=== PATIENT | female | born 1995 | race Caucasian/White ===

== ENCOUNTER 2023-01-12 07:32 | Inpatient (IN) | payer OTHER ==
[~2023-01-12] VITALS: Ht 154.9 cm; Wt 97.5 kg
[2023-01-12] MEDS ORDERED: LR 1,000 ML IV ONE (11:45)
[2023-01-12] MEDS ORDERED: NALBUPHINE HCL 10 MG/ML AMP IVP PRN (11:45)
[2023-01-12] MEDS ORDERED: LR 1,000 ML IV SCH (11:45)
[2023-01-12 12:10] LABS: BASOPHILS % (AUTO) 0.3 % (0.0-2.0); EOSINOPHILS % (AUTO) 0.4 % (0.0-4.0); HEMATOCRIT 30.7 % (36-48); HEMOGLOBIN 9.7 g/dL (12.0-16.0); LYMPHOCYTES # (AUTO) 1.9 K/uL (1.0-5.5); LYMPHOCYTES % (AUTO) 15.6 % (20.5-51.5); MEAN CORPUSCULAR HEMOGLOBIN 23 pg (27-31); MEAN CORPUSCULAR HGB CONC 32 % (32-36); MEAN CORPUSCULAR VOLUME 73 fL (79.0-98.0); MONOCYTES # (AUTO) 0.7 K/uL (0.0-1.0); MONOCYTES % (AUTO) 5.6 % (1.7-9.3); NEUTROPHILS # (AUTO) 9.6 K/uL (1.8-7.7); NEUTROPHILS % (AUTO) 78.1 % (40.0-70.0); PLATELET COUNT (AUTO) 175 K/uL (130-430); RED BLOOD CELL COUNT(AUTO) 4.23 MIL/uL (4.2-6.2); RED CELL DISTRIBUTION WIDTH 19.4 % (9.0-15.0); WHITE BLOOD COUNT (AUTO) 12.3 K/uL (4.8-10.8)
[2023-01-12] MEDS ORDERED: OXYTOCIN/0.9 % SODIUM CHLORIDE 1,000 ML IV ONE ×2 (12:51→18:00)
[2023-01-12] MEDS ORDERED: OXYTOCIN/0.9 % SODIUM CHLORIDE 1,000 ML IV SCH ×2 (13:00→18:00)
[2023-01-12] MEDS ORDERED: HEMABATE 250MCG/ML VIAL AMP IM ONE (13:36)
[2023-01-12] MEDS ORDERED: METHYLERGONOVINE MALEATE 0.2 MG/ML AMP ONE ×2 (13:36→14:58)
[2023-01-12] MEDS ORDERED: ANUSOL 1 EA SUPP.RECT (PREPARATION H) RC PRN (18:00)
[2023-01-12] MEDS ORDERED: DIPHTH,PERTUSS(ACELL),TET VAC 0.5 ML VIAL (Tdap) I.M. PRN (18:00)
[2023-01-12] MEDS ORDERED: DERMOPLAST SPRAY TP PRN (18:00)
[2023-01-12] MEDS ORDERED: MEASLES,MUMPS&RUBELLA VACC/PF 12500 UNIT/0.5 ML VIAL SUBQ PRN (18:00)
[2023-01-12] MEDS ORDERED: METHYLERGONOVINE MALEATE 0.2 MG TABLET PO PRN (18:00)
[2023-01-12] MEDS ORDERED: WITCH HAZEL LEAF 1 MED.PAD MED.PAD TP PRN (18:00)
[2023-01-12] MEDS ORDERED: HYDROCORTISONE 0.5% CREAM 28.4 GM CREAM.GM. TP PRN (18:00)
[2023-01-12] MEDS ORDERED: RHO(D) IMMUNE GLOBULIN/MALTOSE 1500 UNITS/1.3 ML (WINHRO) IM PRN (18:00)
[2023-01-12] MEDS ORDERED: LANOLIN 7 GM OINT. TP PRN (18:00)
[2023-01-12] MEDS: IBUPROFEN 600 MG TABLET PO SCH (18:33)
[2023-01-12] MEDS ORDERED: TEMAZEPAM 15 MG CAPSULE PO PRN (21:00)
[2023-01-13] MEDS: IBUPROFEN 600 MG TABLET PO SCH ×4 (00:25→17:19)
[2023-01-13 06:37] LABS: HEMATOCRIT 25.6 % (36-48); HEMOGLOBIN 8.1 g/dL (12.0-16.0)
[2023-01-13] MEDS ORDERED: DOCUSATE SODIUM 100 MG CAPSULE PO SCH (09:00)
== END 2023-01-13 19:55 | disposition home or self-care (01) | DRG 560 ==
LOC: SPU 11:03
PROVIDERS: ADMIT Obstetrics & Gynecology; ATTEND Obstetrics & Gynecology
PROC: 10E0XZZ Delivery of Products of Conception, External Approach (ICD-10-PCS; principal; 2023-01-12)
DX: O62.3 Precipitate labor (principal); Z37.0 Single live birth; Z20.822 Contact with and (suspected) exposure to COVID-19; Z3A.39 39 weeks gestation of pregnancy
CPT/HCPCS: 36415; 81002; 85018; 85025; 86592; 86886; 86900; 86901; J2210; J2590